=== PATIENT | female | born 1995 | race Hispanic/Latino ===

== ENCOUNTER 2021-11-21 11:35 | Inpatient (IN) | payer BC ==
[~2021-11-21] VITALS: Ht 170.2 cm; Wt 94.8 kg
[2021-11-21 12:40] LABS: APPEARANCE,URINE Turbid (CLEAR); BILIRUBIN,URINE Negative (NEGATIVE); COLOR,URINE Yellow (YELLOW); GLUCOSE, URINE (UA) Negative (NEGATIVE); KETONES,URINE Negative (NEGATIVE); LEUKOCYTE ESTERASE ,URINE Trace (NEGATIVE); NITRATE,URINE Negative (NEGATIVE); OCCULT BLOOD,URINE Large (NEGATIVE); PROTEIN,URINE POS 1+ mg/dL (NEGATIVE); UROBILINOGEN,URINE 0.2 mg/dL (0.2-1.0)
[2021-11-21 12:41] LABS: BACTERIA,URINE Rare /HPF (None Seen); SQUAMOUS EPITHELIAL CELL,UR Rare /HPF (0-2); WBC,URINE 0-1 /HPF (0-1)
[2021-11-21] MEDS ORDERED: MEPERIDINE-PF 50 MG/ML SYG IVP PRN (13:30)
[2021-11-21] MEDS ORDERED: PROMETHAZINE HCL 25 MG/ML 1ML AMPULE IM PRN (13:30)
[2021-11-21 13:41] LABS: HEMATOCRIT 37.9 % (36-48); MEAN CORPUSCULAR HEMOGLOBIN 33.8 pg (27.0-33.0); MEAN CORPUSCULAR HGB CONC 34.8 g/dL (32.0-36.0); MEAN CORPUSCULAR VOLUME 96.9 fL (79-99); RED BLOOD CELL COUNT(AUTO) 3.91 MIL/uL (4.00-5.50); RED CELL DISTRIBUTION WIDTH 12.8 % (11.0-15.5); WHITE BLOOD COUNT (AUTO) 11.7 K/uL (4.8-10.8)
[2021-11-21] MEDS: LACTATED RINGERS 1000ML 1,000 ML IV PRN (19:07)
[2021-11-22] MEDS: LACTATED RINGERS 1000ML 1,000 ML IV PRN (03:23)
[2021-11-22] MEDS ORDERED: AMPICILLIN 2GM+NS 100ML 100 ML IV ONE (06:47)
[2021-11-22] MEDS ORDERED: OXYTOCIN-LR 20 UNITS/1000 ML 1,000 ML IV SCH (07:00)
[2021-11-22] MEDS: OXYTOCIN-LR 20 UNITS/1000 ML 1,000 ML IV SCH ×2 (07:04→16:00)
[2021-11-22 09:01] LABS: RAPID PLASMA REAGIN NONREACTIVE (NONREACTIVE)
[2021-11-22] MEDS ORDERED: AMPICILLIN 2GM+NS 100ML IV SCH (12:00)
[2021-11-22] MEDS ORDERED: DIPH,PERTUSS(ACELL),TET VAC/PF 0.5 ML VIAL IM PRN (15:30)
[2021-11-22] MEDS ORDERED: ACETAMINOPHEN 325 MG TAB PO PRN (15:30)
[2021-11-22] MEDS ORDERED: WITCH HAZEL 1 PAD TP PRN (15:30)
[2021-11-22] MEDS ORDERED: BENZOCAINE/LANOLIN/ALOE VERA 60 ML AEROSOL TP PRN (15:30)
[2021-11-22] MEDS ORDERED: ACETAMINOPHEN WITH CODEINE 1 TAB TAB PO PRN (15:30)
[2021-11-22] MEDS ORDERED: IBUPROFEN 600 MG TABLET PO PRN (15:30)
[2021-11-22] MEDS ORDERED: MEASLES/MUMPS/RUBELLA VACCINE, LIVE 0.5 ML/VIAL SQ PRN (15:30)
[2021-11-22] MEDS ORDERED: LANOLIN 30GM OINTMENT TP PRN (15:30)
[2021-11-22] MEDS ORDERED: LIDOCAINE HCL 1% 20 ML VIAL ONE (18:09)
[2021-11-22] MEDS ORDERED: PREN-196 PO (18:46)
[2021-11-22 18:52] VITALS: BP 101/67
[2021-11-22 19:56] VITALS: BP 113/76
[2021-11-22] MEDS: DOCUSATE SODIUM 100 MG CAP PO SCH (20:21)
[2021-11-22 23:41] VITALS: BP 107/67
[2021-11-23 04:14] VITALS: BP 108/67
[2021-11-23 06:37] LABS: HEMATOCRIT 30.8 % (36-48); MEAN CORPUSCULAR HEMOGLOBIN 32.7 pg (27.0-33.0); MEAN CORPUSCULAR HGB CONC 33.8 g/dL (32.0-36.0); MEAN CORPUSCULAR VOLUME 96.9 fL (79-99); RED BLOOD CELL COUNT(AUTO) 3.18 MIL/uL (4.00-5.50); RED CELL DISTRIBUTION WIDTH 12.8 % (11.0-15.5); WHITE BLOOD COUNT (AUTO) 14.1 K/uL (4.8-10.8)
[2021-11-23 07:32] VITALS: BP 109/73
[2021-11-23] MEDS: DOCUSATE SODIUM 100 MG CAP PO SCH (09:12)
[2021-11-23 11:00] VITALS: BP 113/66
[2021-11-23 16:40] VITALS: BP 118/70
== END 2021-11-23 18:40 | disposition home or self-care (01) | DRG 807 ==
LOC: EDH 11:35 → OBSVTOIN 11:36 → LDH 11:36 → EDH 11:45 → LDH 13:20 → WSH 21:20 → LDH 23:23 → WSH 11-22 18:35
PROVIDERS: ADMIT Obstetrics & Gynecology; ATTEND Obstetrics & Gynecology
PROC: 10E0XZZ Delivery of Products of Conception, External Approach (ICD-10-PCS; principal; 2021-11-22)
PROC: 0KQM0ZZ Repair Perineum Muscle, Open Approach (ICD-10-PCS; 2021-11-22)
PROC: 3E033VJ Introduction of Other Hormone into Peripheral Vein, Percutaneous Approach (ICD-10-PCS; 2021-11-22)
PROC: 3E0234Z Introduction of Serum, Toxoid and Vaccine into Muscle, Percutaneous Approach (ICD-10-PCS; 2021-11-22)
PROC: 3E0134Z Introduction of Serum, Toxoid and Vaccine into Subcutaneous Tissue, Percutaneous Approach (ICD-10-PCS; 2021-11-22)
DX: O69.1XX0 Labor and delivery complicated by cord around neck, with compression, not applicable or unspecified (principal); Z37.0 Single live birth; O70.1 Second degree perineal laceration during delivery; Z3A.37 37 weeks gestation of pregnancy; Z23 Encounter for immunization
CPT/HCPCS: 36415; 81001; 85027; 86592; 86701; 86850; 86900; 86901; 87340; 87390; A4314; G0378; J0290; J2175; J2550; J2590; J7120